=== PATIENT | male | born 1980 | race Caucasian/White ===

== ENCOUNTER 2017-05-27 16:00 | Outpatient (RCR) | payer BC | END 2017-06-30 18:10 | disposition home or self-care (01) | LOC: PT 16:00 | DX: M54.5 Low back pain (principal) ==

== ENCOUNTER 2018-02-05 20:43 | Observation (INO) | payer BC ==
[~2018-02-05] VITALS: Ht 177.8 cm; Wt 145.9 kg
[2018-02-05 21:43] LABS: ALBUMIN 4.2 g/dL (3.5-5.0); BUN/CREATININE RATIO 11.1 (6.0-26.0); CALCIUM 9.3 mg/dL (8.4-10.2); POTASSIUM 3.6 mmol/L (3.6-5.0); TOTAL BILIRUBIN 0.5 mg/dL (0.2-1.3); TOTAL PROTEIN 7.6 g/dL (6.3-8.2)
[2018-02-05 21:44] LABS: EOS # 0.2 (0.04-0.40); EOS % 1.8 % (0.0-4.0); HEMOGLOBIN 13.5 g/dL (13.5-18.0); LYMPH# 2.8 (1.50-4.00); MEAN CELL VOLUME 83 fl (78-100); MEAN CORPUSCULAR HEMOGLOBIN 27 pg (27-31); MEAN CORPUSCULAR HGB CONC 32 g/dL (33-37); MEAN PLATELET VOLUME 11.6 fl (7.4-10.4); MONO # 1.2 (0.20-0.80); NEU # 8.6 (1.40-6.50); PLATELET COUNT 277 K/mm3 (130-400); RED BLOOD COUNT 5.08 M/mm3 (4.20-5.60); RED CELL DISTRIBUTION WIDTH 15.1 % (11.5-14.5); WHITE BLOOD COUNT 12.9 K/mm3 (4.8-10.8)
[2018-02-05 21:52] LABS: URINE APPEARANCE HAZY; URINE BILIRUBIN NEGATIVE (NEGATIVE); URINE COLOR DK YELLOW; URINE GLUCOSE NEGATIVE (NEGATIVE); URINE KETONE 1+ (NEGATIVE); URINE NITRATE NEGATIVE (NEGATIVE); URINE PROTEIN(semi-quant) TRACE mg/dL (NEGATIVE); URINE UROBILINOGEN NORMAL (NORMAL)
[2018-02-05 21:53] LABS: URINE BLOOD NEGATIVE (NEGATIVE); URINE LEUKOCYTE ESTERASE TRACE (NEGATIVE)
[2018-02-05 21:54] LABS: URINE MUCUS PRESENT (NOT PRESENT)
[2018-02-06 00:32] VITALS: BP 124/76
[2018-02-06 00:57] VITALS: BP 124/76
[2018-02-06 03:00] VITALS: BP 149/88
[2018-02-06 06:51] LABS: EOS # 0.4 (0.04-0.40); HEMATOCRIT 40.5 % (42.0-52.0); HEMOGLOBIN 12.8 g/dL (13.5-18.0); LYMPH# 2.9 (1.50-4.00); MEAN CELL VOLUME 85 fl (78-100); MEAN CORPUSCULAR HEMOGLOBIN 27 pg (27-31); MEAN CORPUSCULAR HGB CONC 32 g/dL (33-37); MEAN PLATELET VOLUME 11.7 fl (7.4-10.4); MONO # 1.2 (0.20-0.80); NEU # 7.1 (1.40-6.50); PLATELET COUNT 248 K/mm3 (130-400); RED BLOOD COUNT 4.78 M/mm3 (4.20-5.60); RED CELL DISTRIBUTION WIDTH 15.1 % (11.5-14.5); WHITE BLOOD COUNT 11.6 K/mm3 (4.8-10.8)
[2018-02-06 07:08] VITALS: BP 115/73
[2018-02-06 08:10] LABS: ALBUMIN 3.7 g/dL (3.5-5.0); BUN/CREATININE RATIO 11.6 (6.0-26.0); CALCIUM 8.4 mg/dL (8.4-10.2); POTASSIUM 4.2 mmol/L (3.6-5.0); TOTAL BILIRUBIN 0.5 mg/dL (0.2-1.3); TOTAL PROTEIN 6.6 g/dL (6.3-8.2)
[2018-02-06 09:54] VITALS: BP 120/81
== END 2018-02-06 10:18 | disposition short-term general hospital (02) ==
LOC: ED 20:43 → MED/SURG 02-06 00:06
PROVIDERS: Nurse Practitioner Primary Care; ADMIT Family Medicine
DX: N13.6 Pyonephrosis (principal); Z87.442 Personal history of urinary calculi
CPT/HCPCS: G0378; J0595; J1885; J1956; J2270; J2405; J7030; Q9967